=== PATIENT | female | born 1945 | race Caucasian/White ===

== ENCOUNTER 2021-07-14 11:10 | Inpatient (IN) ==
[2021-07-14] MEDS ORDERED: Naloxone 0.4 MG/ML INJ IVP PRN (14:31)
[2021-07-14] MEDS ORDERED: Ondansetron 4 MG/2 ML VIAL IVP PRN (14:31)
[2021-07-14] MEDS: 0.9 % Sodium Chloride 1,000 ML IVC SCH ×2 (19:15→22:26)
[2021-07-14] MEDS ORDERED: 0.9 % Sodium Chloride 500 ML IVC ONE (20:05)
[2021-07-14] MEDS ORDERED: Perflutren Lipid Microsphere 1.3 ML in 0.9 % Sodium Chloride 8.7 ML IVP PRN (20:05)
[2021-07-14] MEDS: Melatonin 3 MG TABLET PO PRN (21:33)
[2021-07-14] MEDS: Aspirin Enteric Coated 81 MG Tablet PO SCH (21:34)
[2021-07-15 05:37] LABS: Basophils % 0.2 %; Eosinophils % 0.5 %; Hematocrit 34.7 % (35.3-44.9); Hemoglobin 10.9 g/dL (11.5-15.4); Immature Granulocytes % 0.5 % (0-4); Lymphocytes # 1.3 K/mcL (0.6-4.6); Lymphocytes % 15.4 %; Mean Corpuscular HGB Conc 31.4 g/dL (31.6-35.5); Mean Corpuscular Hemoglobin 29.9 pg (28.0-33.3); Mean Corpuscular Volume 95.3 fL (83.0-100.0); Mean Platelet Volume 8.6 fL (9.4-12.4); Monocytes # 1.1 K/mcL (0.0-1.3); Monocytes % 13.5 %; Neutrophils # 5.8 K/mcL (1.6-8.9); Platelet Count 217 K/mcL (140-400); Red Blood Count 3.64 M/mcL (3.82-4.97); Segmented Neutrophils % 69.9 %; White Blood Count 8.4 K/mcL (4.3-11.1)
[2021-07-15 06:02] LABS: BUN/Creatinine Ratio 20 (6-26); Blood Urea Nitrogen 16 mg/dL (8-23); Calcium 8.9 mg/dL (8.6-10.3); Carbon Dioxide 25 mEq/L (23-29); Chloride 97 mEq/L (98-107); Glucose 107 mg/dL (70-105); Osmolality,Calculated 270 (280-300); Potassium 3.7 mEq/L (3.5-5.1); Sodium 129 mEq/L (136-145); eGFR For African Americans > 60 (> 60); eGFR For Non-African Americans > 60 (> 60)
[2021-07-15] MEDS: Aspirin Enteric Coated 81 MG Tablet PO SCH (09:21)
[2021-07-15] MEDS: Ketorolac OPTH Soln 5 ML BOTTLE RIGHT EYE SCH (13:14)
[2021-07-15] MEDS: Maxitrol Opth OINT 3.5 GM TUBE RIGHT EYE SCH ×2 (13:14→20:14)
[2021-07-15 14:30] LABS: Magnesium 1.7 mg/dL (1.6-2.6)
[2021-07-15] MEDS: Melatonin 3 MG TABLET PO PRN (23:37)
[2021-07-16] MEDS ORDERED: *HR* LORazepam 2 MG/ML VIAL IVP ONE (02:06)
[2021-07-16] MEDS ORDERED: ALPRAZolam 0.5 MG TABLET PO PRN (07:38)
[2021-07-16 08:56] LABS: Basophils % 0.2 %; Eosinophils % 0.8 %; Hematocrit 29.8 % (35.3-44.9); Hemoglobin 9.9 g/dL (11.5-15.4); Immature Granulocytes % 0.2 % (0-4); Lymphocytes # 0.9 K/mcL (0.6-4.6); Lymphocytes % 16.3 %; Mean Corpuscular HGB Conc 33.2 g/dL (31.6-35.5); Mean Corpuscular Hemoglobin 30.9 pg (28.0-33.3); Mean Corpuscular Volume 93.1 fL (83.0-100.0); Mean Platelet Volume 8.7 fL (9.4-12.4); Monocytes # 0.8 K/mcL (0.0-1.3); Monocytes % 15.3 %; Neutrophils # 3.6 K/mcL (1.6-8.9); Platelet Count 171 K/mcL (140-400); Red Cell Distribution Width 12.6 % (11.5-14.5); Segmented Neutrophils % 67.2 %; White Blood Count 5.3 K/mcL (4.3-11.1)
[2021-07-16 09:46] LABS: Alanine Aminotransferase 9 Units/L (7-52); Albumin 3.4 g/dL (3.5-5.7); Alkaline Phosphatase 53 Units/L (34-104); Aspartate Amino Transferase 13 Units/L (13-39); BUN/Creatinine Ratio 27 (6-26); Bilirubin,Total 0.4 mg/dL (0.3-1.0); Blood Urea Nitrogen 12 mg/dL (8-23); Calcium 8.6 mg/dL (8.6-10.3); Carbon Dioxide 26 mEq/L (23-29); Chloride 99 mEq/L (98-107); Globulin 1.7 g/dL (2.4-3.5); Glucose 90 mg/dL (70-105); Osmolality,Calculated 271 (280-300); Potassium 3.9 mEq/L (3.5-5.1); Sodium 131 mEq/L (136-145); Total Protein 5.1 g/dL (6.4-8.9); eGFR For African Americans > 60 (> 60); eGFR For Non-African Americans > 60 (> 60)
[2021-07-16] MEDS: Ketorolac OPTH Soln 5 ML BOTTLE RIGHT EYE SCH (11:29)
[2021-07-16] MEDS: Maxitrol Opth OINT 3.5 GM TUBE RIGHT EYE SCH ×2 (11:29→20:58)
[2021-07-16] MEDS: Aspirin Enteric Coated 81 MG Tablet PO SCH (11:29)
[2021-07-16] MEDS: Metoprolol 100 MG TABLET PO SCH ×2 (11:35→20:58)
[2021-07-16] MEDS: Furosemide 40 MG TABLET PO SCH (11:35)
[2021-07-16] MEDS: Gabapentin 300 MG CAPSULE PO SCH ×3 (11:36→20:58)
[2021-07-16] MEDS: lisinopriL 20 MG TABLET PO SCH (11:36)
[2021-07-16] MEDS: amLODIPine 5 MG TABLET PO SCH ×2 (11:41→20:58)
[2021-07-16] MEDS ORDERED: QUEtiapine Fumarate 25 MG TABLET PO PRN (11:57)
[2021-07-16 13:34] LABS: Folate 21.6 ng/mL (3.0-16.0)
[2021-07-16 20:27] LABS: Bilirubin,Urine Negative (Negative); Blood,Urine Negative (Negative); Clarity,Urine Clear (Clear); Color,Urine Colorless (Yellow); Glucose,Urine (UA) Normal (Normal); Ketones,Urine Negative (Negative); Leukocyte Esterase,Urine Negative (Negative); Nitrite,Urine Negative (Negative); PH,Urine 6.5 pH Units (5.0-8.0); Protein,Urine Negative (Neg-Trace); Specific Gravity,Urine 1.011 (1.010-1.025); Urobilinogen,Urine Normal (Normal)
[2021-07-16] MEDS: Melatonin 3 MG TABLET PO PRN (20:58)
[2021-07-17 06:01] LABS: Eosinophils # 0.1 K/mcL (0.0-0.6); Eosinophils % 1.9 %; Hematocrit 30.4 % (35.3-44.9); Hemoglobin 10.3 g/dL (11.5-15.4); Immature Granulocytes % 0.5 % (0-4); Lymphocytes % 22.5 %; Mean Corpuscular HGB Conc 33.9 g/dL (31.6-35.5); Mean Corpuscular Hemoglobin 30.7 pg (28.0-33.3); Mean Corpuscular Volume 90.7 fL (83.0-100.0); Mean Platelet Volume 8.8 fL (9.4-12.4); Monocytes # 0.7 K/mcL (0.0-1.3); Monocytes % 15.5 %; Neutrophils # 2.5 K/mcL (1.6-8.9); Platelet Count 192 K/mcL (140-400); Red Blood Count 3.35 M/mcL (3.82-4.97); Red Cell Distribution Width 12.6 % (11.5-14.5); Segmented Neutrophils % 59.6 %; White Blood Count 4.3 K/mcL (4.3-11.1)
[2021-07-17 06:54] LABS: Alanine Aminotransferase 9 Units/L (7-52); Albumin 3.4 g/dL (3.5-5.7); Albumin/Globulin Ratio 1.7 (1.1-2.2); Alkaline Phosphatase 58 Units/L (34-104); Aspartate Amino Transferase 12 Units/L (13-39); BUN/Creatinine Ratio 20 (6-26); Bilirubin,Total 0.4 mg/dL (0.3-1.0); Blood Urea Nitrogen 9 mg/dL (8-23); Carbon Dioxide 30 mEq/L (23-29); Chloride 90 mEq/L (98-107); Glucose 99 mg/dL (70-105); Osmolality,Calculated 261 (280-300); Potassium 3.6 mEq/L (3.5-5.1); Sodium 126 mEq/L (136-145); Total Protein 5.4 g/dL (6.4-8.9); eGFR For African Americans > 60 (> 60); eGFR For Non-African Americans > 60 (> 60)
[2021-07-17] MEDS: Furosemide 40 MG TABLET PO SCH (08:28)
[2021-07-17] MEDS: amLODIPine 5 MG TABLET PO SCH ×2 (08:28→19:46)
[2021-07-17] MEDS: lisinopriL 20 MG TABLET PO SCH (08:28)
[2021-07-17] MEDS: Gabapentin 300 MG CAPSULE PO SCH ×3 (08:28→19:50)
[2021-07-17] MEDS: Maxitrol Opth OINT 3.5 GM TUBE RIGHT EYE SCH ×2 (08:29→19:51)
[2021-07-17] MEDS: Aspirin Enteric Coated 81 MG Tablet PO SCH (08:29)
[2021-07-17] MEDS: Ketorolac OPTH Soln 5 ML BOTTLE RIGHT EYE SCH (08:29)
[2021-07-17] MEDS: Metoprolol 100 MG TABLET PO SCH ×2 (08:29→19:45)
[2021-07-17] MEDS: Acetaminophen 325 MG TABLET PO PRN (15:40)
[2021-07-17] MEDS: ALPRAZolam 0.5 MG TABLET PO SCH ×2 (15:40→19:50)
[2021-07-17] MEDS: *HR* Heparin 5,000 UNIT/ML VIAL SQ SCH (18:41)
[2021-07-17] MEDS: Melatonin 3 MG TABLET PO PRN (19:50)
[2021-07-18] MEDS: *HR* Heparin 5,000 UNIT/ML VIAL SQ SCH ×2 (05:25→17:12)
[2021-07-18 05:29] LABS: Basophils % 0.2 %; Eosinophils # 0.1 K/mcL (0.0-0.6); Eosinophils % 1.6 %; Hematocrit 30.9 % (35.3-44.9); Hemoglobin 10.2 g/dL (11.5-15.4); Immature Granulocytes % 1.1 % (0-4); Lymphocytes # 1.3 K/mcL (0.6-4.6); Lymphocytes % 23.1 %; Mean Corpuscular Hemoglobin 30.3 pg (28.0-33.3); Mean Corpuscular Volume 91.7 fL (83.0-100.0); Mean Platelet Volume 8.8 fL (9.4-12.4); Monocytes # 0.8 K/mcL (0.0-1.3); Monocytes % 14.5 %; Neutrophils # 3.3 K/mcL (1.6-8.9); Platelet Count 220 K/mcL (140-400); Red Blood Count 3.37 M/mcL (3.82-4.97); Red Cell Distribution Width 12.5 % (11.5-14.5); Segmented Neutrophils % 59.5 %; White Blood Count 5.5 K/mcL (4.3-11.1)
[2021-07-18 05:51] LABS: Magnesium 1.6 mg/dL (1.6-2.6); Phosphorous 3.8 mg/dL (2.7-4.5)
[2021-07-18 05:55] LABS: Alanine Aminotransferase 10 Units/L (7-52); Albumin 3.4 g/dL (3.5-5.7); Albumin/Globulin Ratio 1.8 (1.1-2.2); Alkaline Phosphatase 59 Units/L (34-104); Aspartate Amino Transferase 11 Units/L (13-39); BUN/Creatinine Ratio 31 (6-26); Bilirubin,Total 0.3 mg/dL (0.3-1.0); Blood Urea Nitrogen 20 mg/dL (8-23); Calcium 8.5 mg/dL (8.6-10.3); Carbon Dioxide 27 mEq/L (23-29); Chloride 87 mEq/L (98-107); Globulin 1.9 g/dL (2.4-3.5); Glucose 107 mg/dL (70-105); Osmolality,Calculated 257 (280-300); Potassium 4.2 mEq/L (3.5-5.1); Sodium 122 mEq/L (136-145); Total Protein 5.3 g/dL (6.4-8.9); eGFR For African Americans > 60 (> 60); eGFR For Non-African Americans > 60 (> 60)
[2021-07-18 06:44] LABS: Thyroid Stimulating Hormone 1.496 mcIU/mL (0.340-5.600)
[2021-07-18] MEDS: ALPRAZolam 0.5 MG TABLET PO SCH ×3 (08:49→20:08)
[2021-07-18] MEDS: Gabapentin 300 MG CAPSULE PO SCH ×3 (08:49→20:08)
[2021-07-18] MEDS: Metoprolol 100 MG TABLET PO SCH ×2 (08:49→20:08)
[2021-07-18] MEDS: amLODIPine 5 MG TABLET PO SCH ×2 (08:49→20:08)
[2021-07-18] MEDS: lisinopriL 20 MG TABLET PO SCH (08:49)
[2021-07-18] MEDS: Aspirin Enteric Coated 81 MG Tablet PO SCH (08:49)
[2021-07-18] MEDS: Ketorolac OPTH Soln 5 ML BOTTLE RIGHT EYE SCH (08:50)
[2021-07-18] MEDS: Maxitrol Opth OINT 3.5 GM TUBE RIGHT EYE SCH ×2 (08:50→20:13)
[2021-07-18] MEDS: Acetaminophen 325 MG TABLET PO PRN (12:27)
[2021-07-19] MEDS: *HR* Heparin 5,000 UNIT/ML VIAL SQ SCH ×2 (05:07→17:20)
[2021-07-19 05:45] LABS: Basophils % 0.3 %; Eosinophils # 0.1 K/mcL (0.0-0.6); Hemoglobin 9.6 g/dL (11.5-15.4); Immature Granulocytes % 1.5 % (0-4); Lymphocytes # 1.3 K/mcL (0.6-4.6); Lymphocytes % 19.7 %; Mean Corpuscular HGB Conc 33.1 g/dL (31.6-35.5); Mean Corpuscular Hemoglobin 30.1 pg (28.0-33.3); Mean Corpuscular Volume 90.9 fL (83.0-100.0); Mean Platelet Volume 8.8 fL (9.4-12.4); Monocytes # 1.1 K/mcL (0.0-1.3); Monocytes % 15.5 %; Neutrophils # 4.2 K/mcL (1.6-8.9); Platelet Count 230 K/mcL (140-400); Red Blood Count 3.19 M/mcL (3.82-4.97); Red Cell Distribution Width 12.2 % (11.5-14.5); White Blood Count 6.8 K/mcL (4.3-11.1)
[2021-07-19 06:15] LABS: Alanine Aminotransferase 11 Units/L (7-52); Albumin 3.3 g/dL (3.5-5.7); Albumin/Globulin Ratio 1.7 (1.1-2.2); Alkaline Phosphatase 61 Units/L (34-104); Aspartate Amino Transferase 14 Units/L (13-39); BUN/Creatinine Ratio 63 (6-26); Bilirubin,Total 0.3 mg/dL (0.3-1.0); Blood Urea Nitrogen 37 mg/dL (8-23); Calcium 8.5 mg/dL (8.6-10.3); Carbon Dioxide 27 mEq/L (23-29); Chloride 89 mEq/L (98-107); Globulin 1.9 g/dL (2.4-3.5); Glucose 111 mg/dL (70-105); Osmolality,Calculated 261 (280-300); Potassium 4.5 mEq/L (3.5-5.1); Sodium 121 mEq/L (136-145); Total Protein 5.2 g/dL (6.4-8.9); eGFR For African Americans > 60 (> 60); eGFR For Non-African Americans > 60 (> 60)
[2021-07-19] MEDS: amLODIPine 5 MG TABLET PO SCH ×2 (10:25→21:38)
[2021-07-19] MEDS: Gabapentin 300 MG CAPSULE PO SCH (10:26)
[2021-07-19] MEDS: ALPRAZolam 0.5 MG TABLET PO SCH ×3 (10:26→21:39)
[2021-07-19] MEDS: Metoprolol 100 MG TABLET PO SCH ×2 (10:26→21:37)
[2021-07-19] MEDS: Aspirin Enteric Coated 81 MG Tablet PO SCH (10:26)
[2021-07-19] MEDS: lisinopriL 20 MG TABLET PO SCH (10:26)
[2021-07-19] MEDS: Ketorolac OPTH Soln 5 ML BOTTLE RIGHT EYE SCH (10:27)
[2021-07-19] MEDS: Maxitrol Opth OINT 3.5 GM TUBE RIGHT EYE SCH ×2 (10:27→21:39)
[2021-07-19] MEDS ORDERED: Tolvaptan 15 MG TABLET PO ONE (12:00)
[2021-07-20 01:36] LABS: Basophils % 0.4 %; Eosinophils # 0.1 K/mcL (0.0-0.6); Eosinophils % 0.9 %; Hematocrit 29.1 % (35.3-44.9); Hemoglobin 9.4 g/dL (11.5-15.4); Immature Granulocytes % 1.4 % (0-4); Lymphocytes % 18.5 %; Mean Corpuscular HGB Conc 32.3 g/dL (31.6-35.5); Mean Platelet Volume 8.7 fL (9.4-12.4); Monocytes # 0.8 K/mcL (0.0-1.3); Monocytes % 14.9 %; Neutrophils # 3.6 K/mcL (1.6-8.9); Platelet Count 268 K/mcL (140-400); Red Blood Count 3.13 M/mcL (3.82-4.97); Red Cell Distribution Width 12.5 % (11.5-14.5); Segmented Neutrophils % 63.9 %; White Blood Count 5.6 K/mcL (4.3-11.1)
[2021-07-20 01:52] LABS: Alanine Aminotransferase 13 Units/L (7-52); Albumin 3.3 g/dL (3.5-5.7); Albumin/Globulin Ratio 1.4 (1.1-2.2); Alkaline Phosphatase 60 Units/L (34-104); Aspartate Amino Transferase 14 Units/L (13-39); BUN/Creatinine Ratio 43 (6-26); Bilirubin,Total 0.2 mg/dL (0.3-1.0); Blood Urea Nitrogen 30 mg/dL (8-23); Calcium 8.8 mg/dL (8.6-10.3); Carbon Dioxide 27 mEq/L (23-29); Chloride 95 mEq/L (98-107); Globulin 2.3 g/dL (2.4-3.5); Glucose 114 mg/dL (70-105); Osmolality,Calculated 275 (280-300); Potassium 4.7 mEq/L (3.5-5.1); Sodium 129 mEq/L (136-145); Total Protein 5.6 g/dL (6.4-8.9); eGFR For African Americans > 60 (> 60); eGFR For Non-African Americans > 60 (> 60)
[2021-07-20] MEDS: *HR* Heparin 5,000 UNIT/ML VIAL SQ SCH ×2 (05:38→17:37)
[2021-07-20] MEDS: Ketorolac OPTH Soln 5 ML BOTTLE RIGHT EYE SCH (10:17)
[2021-07-20] MEDS: Maxitrol Opth OINT 3.5 GM TUBE RIGHT EYE SCH ×2 (10:18→20:41)
[2021-07-20] MEDS: lisinopriL 20 MG TABLET PO SCH (10:18)
[2021-07-20] MEDS: Metoprolol 100 MG TABLET PO SCH ×2 (10:19→20:40)
[2021-07-20] MEDS: amLODIPine 5 MG TABLET PO SCH ×2 (10:19→20:40)
[2021-07-20] MEDS: Aspirin Enteric Coated 81 MG Tablet PO SCH (10:19)
[2021-07-20] MEDS: ALPRAZolam 0.5 MG TABLET PO SCH ×3 (10:19→20:40)
[2021-07-20] MEDS: Acetaminophen 325 MG TABLET PO PRN (20:40)
[2021-07-21] MEDS: *HR* Heparin 5,000 UNIT/ML VIAL SQ SCH ×2 (06:22→17:23)
[2021-07-21 06:30] LABS: BUN/Creatinine Ratio 44 (6-26); Blood Urea Nitrogen 28 mg/dL (8-23); Calcium 8.8 mg/dL (8.6-10.3); Carbon Dioxide 23 mEq/L (23-29); Chloride 102 mEq/L (98-107); Glucose 107 mg/dL (70-105); Osmolality,Calculated 280 (280-300); Potassium 5.4 mEq/L (3.5-5.1); Sodium 132 mEq/L (136-145); eGFR For African Americans > 60 (> 60); eGFR For Non-African Americans > 60 (> 60)
[2021-07-21] MEDS ORDERED: *HR* Dextrose 50 % in Water (Syg) 50 ML SYRINGE IVP ONE (07:44)
[2021-07-21] MEDS ORDERED: Insulin Human Regular 10 UNIT in 0.9 % Sodium Chloride 10 ML IV ONE (07:44)
[2021-07-21] MEDS: Metoprolol 100 MG TABLET PO SCH ×2 (09:00→21:29)
[2021-07-21] MEDS: Maxitrol Opth OINT 3.5 GM TUBE RIGHT EYE SCH ×2 (09:00→21:29)
[2021-07-21] MEDS: ALPRAZolam 0.5 MG TABLET PO SCH ×2 (09:00→15:52)
[2021-07-21] MEDS: Aspirin Enteric Coated 81 MG Tablet PO SCH (09:00)
[2021-07-21] MEDS: Ketorolac OPTH Soln 5 ML BOTTLE RIGHT EYE SCH (09:00)
[2021-07-21] MEDS: amLODIPine 5 MG TABLET PO SCH ×2 (09:00→21:30)
[2021-07-22] MEDS: ALPRAZolam 0.5 MG TABLET PO SCH ×4 (00:03→16:51)
[2021-07-22] MEDS: *HR* Heparin 5,000 UNIT/ML VIAL SQ SCH ×2 (06:04→17:03)
[2021-07-22] MEDS: Aspirin Enteric Coated 81 MG Tablet PO SCH (09:36)
[2021-07-22] MEDS: Maxitrol Opth OINT 3.5 GM TUBE RIGHT EYE SCH ×2 (09:37→21:30)
[2021-07-22] MEDS: Metoprolol 100 MG TABLET PO SCH ×2 (09:37→21:25)
[2021-07-22] MEDS: Ketorolac OPTH Soln 5 ML BOTTLE RIGHT EYE SCH (09:37)
[2021-07-22] MEDS: amLODIPine 5 MG TABLET PO SCH ×2 (09:37→21:26)
[2021-07-22] MEDS: QUEtiapine Fumarate 25 MG TABLET PO SCH ×2 (12:40→21:29)
[2021-07-23] MEDS: ALPRAZolam 0.5 MG TABLET PO SCH ×4 (03:08→21:07)
[2021-07-23 03:50] LABS: Basophils % 0.4 %; Eosinophils # 0.1 K/mcL (0.0-0.6); Eosinophils % 1.2 %; Hematocrit 26.1 % (35.3-44.9); Hemoglobin 8.5 g/dL (11.5-15.4); Immature Granulocytes % 0.8 % (0-4); Lymphocytes # 1.2 K/mcL (0.6-4.6); Lymphocytes % 25.4 %; Mean Corpuscular HGB Conc 32.6 g/dL (31.6-35.5); Mean Corpuscular Hemoglobin 30.4 pg (28.0-33.3); Mean Corpuscular Volume 93.2 fL (83.0-100.0); Mean Platelet Volume 8.5 fL (9.4-12.4); Monocytes # 0.7 K/mcL (0.0-1.3); Monocytes % 13.5 %; Neutrophils # 2.9 K/mcL (1.6-8.9); Platelet Count 246 K/mcL (140-400); Red Cell Distribution Width 12.3 % (11.5-14.5); Segmented Neutrophils % 58.7 %; White Blood Count 4.9 K/mcL (4.3-11.1)
[2021-07-23 03:56] LABS: BUN/Creatinine Ratio 32 (6-26); Blood Urea Nitrogen 16 mg/dL (8-23); Calcium 8.6 mg/dL (8.6-10.3); Carbon Dioxide 28 mEq/L (23-29); Chloride 100 mEq/L (98-107); Glucose 110 mg/dL (70-105); Magnesium 1.7 mg/dL (1.6-2.6); Osmolality,Calculated 278 (280-300); Phosphorous 3.2 mg/dL (2.7-4.5); Potassium 4.3 mEq/L (3.5-5.1); Sodium 133 mEq/L (136-145); eGFR For African Americans > 60 (> 60); eGFR For Non-African Americans > 60 (> 60)
[2021-07-23] MEDS: *HR* Heparin 5,000 UNIT/ML VIAL SQ SCH ×2 (04:53→17:42)
[2021-07-23] MEDS: QUEtiapine Fumarate 25 MG TABLET PO SCH ×2 (10:06→21:07)
[2021-07-23] MEDS: Metoprolol 100 MG TABLET PO SCH ×2 (10:06→21:07)
[2021-07-23] MEDS: Aspirin Enteric Coated 81 MG Tablet PO SCH (10:06)
[2021-07-23] MEDS: amLODIPine 5 MG TABLET PO SCH ×2 (10:07→21:07)
[2021-07-23] MEDS: Maxitrol Opth OINT 3.5 GM TUBE RIGHT EYE SCH ×2 (10:07→21:10)
[2021-07-23] MEDS: Ketorolac OPTH Soln 5 ML BOTTLE RIGHT EYE SCH (10:07)
[2021-07-23] MEDS: Thiamine (B-1) 100 MG TABLET PO SCH (10:10)
[2021-07-24] MEDS: *HR* Heparin 5,000 UNIT/ML VIAL SQ SCH ×2 (05:53→16:09)
[2021-07-24] MEDS: Maxitrol Opth OINT 3.5 GM TUBE RIGHT EYE SCH ×2 (08:26→19:47)
[2021-07-24] MEDS: ALPRAZolam 0.5 MG TABLET PO SCH ×3 (08:26→19:49)
[2021-07-24] MEDS: Ketorolac OPTH Soln 5 ML BOTTLE RIGHT EYE SCH (08:26)
[2021-07-24] MEDS: QUEtiapine Fumarate 25 MG TABLET PO SCH ×2 (08:26→19:49)
[2021-07-24] MEDS: Thiamine (B-1) 100 MG TABLET PO SCH (08:26)
[2021-07-24] MEDS: amLODIPine 5 MG TABLET PO SCH ×2 (08:27→19:49)
[2021-07-24] MEDS: Aspirin Enteric Coated 81 MG Tablet PO SCH (08:27)
[2021-07-24] MEDS: Metoprolol 100 MG TABLET PO SCH ×2 (08:27→19:49)
[2021-07-25 02:39] LABS: Hematocrit 25.4 % (35.3-44.9); Hemoglobin 8.3 g/dL (11.5-15.4)
[2021-07-25 03:22] LABS: BUN/Creatinine Ratio 25 (6-26); Blood Urea Nitrogen 15 mg/dL (8-23); Calcium 8.2 mg/dL (8.6-10.3); Carbon Dioxide 25 mEq/L (23-29); Chloride 98 mEq/L (98-107); Glucose 109 mg/dL (70-105); Magnesium 1.5 mg/dL (1.6-2.6); Osmolality,Calculated 269 (280-300); Potassium 4.4 mEq/L (3.5-5.1); Sodium 129 mEq/L (136-145); eGFR For African Americans > 60 (> 60); eGFR For Non-African Americans > 60 (> 60)
[2021-07-25] MEDS: *HR* Heparin 5,000 UNIT/ML VIAL SQ SCH ×2 (05:54→18:51)
[2021-07-25] MEDS: amLODIPine 5 MG TABLET PO SCH ×2 (08:33→20:53)
[2021-07-25] MEDS: Thiamine (B-1) 100 MG TABLET PO SCH (08:33)
[2021-07-25] MEDS: Furosemide 20 MG TABLET PO SCH (08:33)
[2021-07-25] MEDS: Aspirin Enteric Coated 81 MG Tablet PO SCH (08:33)
[2021-07-25] MEDS: QUEtiapine Fumarate 25 MG TABLET PO SCH ×2 (08:33→20:52)
[2021-07-25] MEDS: ALPRAZolam 0.5 MG TABLET PO SCH ×3 (08:33→20:52)
[2021-07-25] MEDS: Metoprolol 100 MG TABLET PO SCH ×2 (08:33→20:53)
[2021-07-25] MEDS: Maxitrol Opth OINT 3.5 GM TUBE RIGHT EYE SCH ×2 (08:52→20:55)
[2021-07-25] MEDS: Ketorolac OPTH Soln 5 ML BOTTLE RIGHT EYE SCH (08:52)
[2021-07-25] MEDS: Acetaminophen 325 MG TABLET PO PRN (11:37)
[2021-07-26 03:20] LABS: BUN/Creatinine Ratio 44 (6-26); Blood Urea Nitrogen 27 mg/dL (8-23); Calcium 8.1 mg/dL (8.6-10.3); Carbon Dioxide 27 mEq/L (23-29); Chloride 99 mEq/L (98-107); Glucose 115 mg/dL (70-105); Magnesium 1.7 mg/dL (1.6-2.6); Osmolality,Calculated 276 (280-300); Phosphorous 3.2 mg/dL (2.7-4.5); Potassium 4.2 mEq/L (3.5-5.1); Sodium 130 mEq/L (136-145); eGFR For African Americans > 60 (> 60); eGFR For Non-African Americans > 60 (> 60)
[2021-07-26] MEDS: *HR* Heparin 5,000 UNIT/ML VIAL SQ SCH ×2 (05:28→17:41)
[2021-07-26] MEDS: Thiamine (B-1) 100 MG TABLET PO SCH (08:06)
[2021-07-26] MEDS: QUEtiapine Fumarate 25 MG TABLET PO SCH ×2 (08:06→21:12)
[2021-07-26] MEDS: Furosemide 20 MG TABLET PO SCH (08:06)
[2021-07-26] MEDS: Aspirin Enteric Coated 81 MG Tablet PO SCH (08:06)
[2021-07-26] MEDS: amLODIPine 5 MG TABLET PO SCH ×2 (08:07→21:12)
[2021-07-26] MEDS: ALPRAZolam 0.5 MG TABLET PO SCH ×3 (08:07→21:12)
[2021-07-26] MEDS: Metoprolol 100 MG TABLET PO SCH ×2 (08:07→21:15)
[2021-07-26] MEDS: Maxitrol Opth OINT 3.5 GM TUBE RIGHT EYE SCH ×2 (08:13→21:20)
[2021-07-26] MEDS: Ketorolac OPTH Soln 5 ML BOTTLE RIGHT EYE SCH (08:13)
[2021-07-27 05:24] LABS: Basophils % 0.3 %; Eosinophils # 0.1 K/mcL (0.0-0.6); Eosinophils % 1.4 %; Hematocrit 27.6 % (35.3-44.9); Immature Granulocytes % 1.9 % (0-4); Lymphocytes # 1.7 K/mcL (0.6-4.6); Lymphocytes % 18.6 %; Mean Corpuscular HGB Conc 32.6 g/dL (31.6-35.5); Mean Corpuscular Hemoglobin 30.5 pg (28.0-33.3); Mean Corpuscular Volume 93.6 fL (83.0-100.0); Mean Platelet Volume 9.4 fL (9.4-12.4); Platelet Count 271 K/mcL (140-400); Red Blood Count 2.95 M/mcL (3.82-4.97); Red Cell Distribution Width 12.6 % (11.5-14.5); Segmented Neutrophils % 66.8 %
[2021-07-27] MEDS: *HR* Heparin 5,000 UNIT/ML VIAL SQ SCH (06:12)
[2021-07-27 08:32] LABS: BUN/Creatinine Ratio 35 (6-26); Blood Urea Nitrogen 18 mg/dL (8-23); Calcium 8.8 mg/dL (8.6-10.3); Carbon Dioxide 29 mEq/L (23-29); Chloride 98 mEq/L (98-107); Glucose 99 mg/dL (70-105); Magnesium 1.6 mg/dL (1.6-2.6); Osmolality,Calculated 274 (280-300); Phosphorous 3.1 mg/dL (2.7-4.5); Potassium 4.2 mEq/L (3.5-5.1); Sodium 131 mEq/L (136-145); eGFR For African Americans > 60 (> 60); eGFR For Non-African Americans > 60 (> 60)
[2021-07-27] MEDS: ALPRAZolam 0.5 MG TABLET PO SCH (08:53)
[2021-07-27] MEDS: Maxitrol Opth OINT 3.5 GM TUBE RIGHT EYE SCH (08:54)
[2021-07-27] MEDS: Ketorolac OPTH Soln 5 ML BOTTLE RIGHT EYE SCH (08:54)
[2021-07-27] MEDS: Metoprolol 100 MG TABLET PO SCH (08:54)
[2021-07-27] MEDS: Thiamine (B-1) 100 MG TABLET PO SCH (08:54)
[2021-07-27] MEDS: Aspirin Enteric Coated 81 MG Tablet PO SCH (08:54)
[2021-07-27] MEDS: Furosemide 20 MG TABLET PO SCH (08:54)
[2021-07-27] MEDS: amLODIPine 5 MG TABLET PO SCH (08:54)
[2021-07-27] MEDS: QUEtiapine Fumarate 25 MG TABLET PO SCH (08:54)
[2021-07-27 11:08] VITALS: BP 117/58; PULSE 80; TEMP 98.4; O2SAT 94
[2021-07-27 13:53] LABS: Adenovirus Not Detected (Not Detect); Bordetella Pertussis Not Detected (Not Detect); Chlamydophila pneumoniae Not Detected (Not Detect); Coronavirus 229E Not Detected (Not Detect); Coronavirus HKU1 Not Detected (Not Detect); Coronavirus NL63 Not Detected (Not Detect); Coronavirus OC43 Not Detected (Not Detect); Human Metapneumovirus Not Detected (Not Detect); Human Rhinovirus/Enterovirus Not Detected (Not Detect); Influenza A Subtype 2009 H1 Not Detected (Not Detect); Influenza B Not Detected (Not Detect); Mycoplasma pneumoniae Not Detected (Not Detect); Parainfluenza Virus 1 Not Detected (Not Detect); Parainfluenza Virus 2 Not Detected (Not Detect); Parainfluenza Virus 3 Not Detected (Not Detect); Parainfluenza Virus 4 Not Detected (Not Detect); Respiratory Syncytial Virus Not Detected (Not Detect); SARS-CoV-2 Not Detected (Not Detect)
== END 2021-07-27 17:32 | DRG 64 ==
LOC: 3BNU → SUATTDRO 13:52
PROVIDERS: ADMIT Nurse Practitioner; ATTEND Internal Medicine